=== PATIENT | male | born 1960 | race Caucasian/White ===

== ENCOUNTER 2024-04-02 10:01 | Emergency (ER) | payer OTHER ==
[~2024-04-02] VITALS: Ht 175.3 cm; Wt 77.1 kg
[2024-04-02 10:11] VITALS: BP 158/95; PULSE 80; RESP 18; TEMP 97.3; O2SAT 99
[2024-04-02] MEDS ORDERED: IBUP-2213 PO (10:34)
[2024-04-02] MEDS ORDERED: ACET-8905 PO (10:34)
[2024-04-02] MEDS: MORPHINE SULFATE 4 MG/ML SYR IM ONE ×2 (10:43→11:33)
[2024-04-02 11:55] VITALS: BP 148/88; PULSE 88; RESP 16; TEMP 98; O2SAT 99
== END 2024-04-02 11:55 | disposition home or self-care (01) ==
LOC: MED 10:01
DX: M54.50 Low back pain, unspecified (principal); E11.9 Type 2 diabetes mellitus without complications; Z79.4 Long term (current) use of insulin; Z79.899 Other long term (current) drug therapy; Z98.890 Other specified postprocedural states
CPT/HCPCS: 96372; 99284; J2270